=== PATIENT | female | born 1985 | race Two or more races ===

== ENCOUNTER → 2017-01-04 | Outpatient (CLI) | payer BC | END | disposition home or self-care (01) | LOC: LAB 15:18 | PROVIDERS: ATTEND Internal Medicine | DX: Z01.812 Encounter for preprocedural laboratory examination (principal) | CPT/HCPCS: 36415; 82565; 84520 ==

== ENCOUNTER 2017-01-26 09:36 | Inpatient (IN) | payer BC ==
[~2017-01-26] VITALS: Ht 162.6 cm; Wt 67.7 kg
[2017-01-26] MEDS ORDERED: PANTOPRAZOLE SODIUM 40 MG/10 ML VIAL IV ONE (10:45)
[2017-01-26 11:00] VITALS: BP 130/91
[2017-01-26] MEDS ORDERED: LEVOTHYROXINE SODIUM 25 MCG TAB PO ONE (11:15)
[2017-01-26] MEDS ORDERED: LEVOFLOXACIN 500MG 100 ML IV ONE (11:15)
[2017-01-26 11:17] LABS: Basophils # (auto) 0 uL; Basophils % (auto) 0.5 % (0.0-2.0); Eosinophils # (auto) 0.1 uL; Eosinophils % (auto) 1.7 % (0.0-7.0); Hematocrit 44.2 % (36.0-46.0); Hemoglobin 14.7 g/dL (12.2-16.2); Lymphocytes # (auto) 1.6 uL; Lymphocytes % (auto) 26.4 % (10.0-50.0); Mean Corpuscular Hemoglobin 30.2 pg (28.0-32.0); Mean Corpuscular Hgb Conc. 33.1 g/dL (32.0-36.0); Mean Corpuscular Volume 91.3 fL (80.0-100.0); Mean Platelet Volume 7.9 fL (7.4-10.4); Monocytes # (auto) 0.6 uL; Monocytes % (auto) 10.6 % (0.0-12.0); Neutrophils # (auto) 3.6 uL; Neutrophils % (auto) 60.8 % (37.0-80.0); Platelet Count (auto) 318 10^3/uL (140-450); Red Cell Distribution Width 13.3 % (11.6-16.0)
[2017-01-26 11:40] LABS: Albumin 3.6 g/dL (3.4-5.0); BUN/Creatinine Ratio 5.4; Bilirubin, Total 0.2 mg/dL (0.2-1.0); Calcium 8.8 mg/dL (8.5-10.1); Potassium 4.2 mmol/L (3.5-5.1); Total Protein 7.8 g/dL (6.4-8.2)
[2017-01-26 11:41] LABS: INR 1.02 (0.9-1.15); Partial Thromboplastin Time 25.4 sec (22.64-33.71); Prothrombin Time 10.5 sec (9.37-12.3)
[2017-01-26 12:06] VITALS: BP 126/83
[2017-01-26] MEDS ORDERED: ESCI10TA PO (12:13)
[2017-01-26] MEDS ORDERED: CIPR-217 PO (12:13)
[2017-01-26] MEDS ORDERED: ESCI5TAB PO (12:13)
[2017-01-26] MEDS ORDERED: MELA3TAB42 PO (12:17)
[2017-01-26] MEDS ORDERED: CRAN400T6 PO (12:17)
[2017-01-26] MEDS ORDERED: [UNRECOGNIZED DRUG - CODE] PO (12:17)
[2017-01-26] MEDS ORDERED: LEVO75TA6 PO (12:17)
[2017-01-26] MEDS: ONDANSETRON HCL 4 MG/2 ML VIAL IV PRN ×2 (13:35→19:56)
[2017-01-26] MEDS: SODIUM CHLORIDE 0.9% 1,000 ML IV SCH (13:36)
[2017-01-26] MEDS: MORPHINE SULF INJ 2 MG/ML SYRINGE 1ML IV PRN (13:36)
[2017-01-26 17:25] VITALS: BP 118/73
[2017-01-26 22:00] VITALS: BP 133/74
[2017-01-26] MEDS: HYDROcodone-ACET 5/325MG TAB PO PRN (23:05)
[2017-01-27] MEDS: SODIUM CHLORIDE 0.9% 1,000 ML IV SCH ×2 (04:44→13:25)
[2017-01-27 05:35] VITALS: BP 128/74
[2017-01-27] MEDS: LEVOTHYROXINE SODIUM 25 MCG TAB PO SCH (06:41)
[2017-01-27 08:00] VITALS: BP 115/71
[2017-01-27] MEDS ORDERED: LIDOCAINE VISCOUS 2% 15ML UD ONE (08:22)
[2017-01-27] MEDS ORDERED: SODIUM CHLORIDE LOCK 10 ML ONE (08:22)
[2017-01-27] MEDS ORDERED: diphenhdrAMINE HCL 50 MG/1 ML VL ONE (08:23)
[2017-01-27 09:02] VITALS: BP 115/71
[2017-01-27] MEDS ORDERED: PANTOPRAZOLE SODIUM 40 MG/10 ML VIAL IV SCH (10:00)
[2017-01-27] MEDS: CITALOPRAM HYDROBR 20 MG TAB PO SCH (10:00)
[2017-01-27] MEDS: LEVOFLOXACIN 500MG 100 ML IV SCH (10:04)
[2017-01-27] MEDS ORDERED: LORazepam 2MG/ML-1ML VIAL IV ONE (10:15)
[2017-01-27] MEDS: fentaNYL CITRATE 100 MCG/2 ML VL ONE ×3 (11:53→11:59)
[2017-01-27] MEDS: MIDAZOLAM HCL 5 MG/ML-1ML VIAL ONE ×3 (11:53→11:59)
[2017-01-27 12:04] VITALS: BP 126/86
[2017-01-27] MEDS: ONDANSETRON HCL 4 MG/2 ML VIAL IV PRN (17:27)
[2017-01-27 17:30] VITALS: BP 106/69
[2017-01-27 21:20] VITALS: BP 124/72
[2017-01-27] MEDS: HYDROcodone-ACET 5/325MG TAB PO PRN (23:53)
[2017-01-28] MEDS: SODIUM CHLORIDE 0.9% 1,000 ML IV SCH ×3 (02:45→20:03)
[2017-01-28 05:01] VITALS: BP 115/75
[2017-01-28] MEDS: LEVOTHYROXINE SODIUM 25 MCG TAB PO SCH (06:43)
[2017-01-28 08:00] VITALS: BP 135/84
[2017-01-28] MEDS: CITALOPRAM HYDROBR 20 MG TAB PO SCH (09:31)
[2017-01-28] MEDS: LEVOFLOXACIN 500MG 100 ML IV SCH (09:31)
[2017-01-28] MEDS: ONDANSETRON HCL 4 MG/2 ML VIAL IV PRN ×2 (09:31→22:36)
[2017-01-28] MEDS: MORPHINE SULF INJ 2 MG/ML SYRINGE 1ML IV PRN (09:35)
[2017-01-28 10:37] LABS: Urine Bilirubin Negative (Negative); Urine Color Yellow (Yellow); Urine Glucose Normal (Normal); Urine Mucus FEW (None Seen); Urine Nitrite Negative (Negative); Urine RBC 4 /hpf (0 - 4); Urine Squamous Epithelial Cell MOD /hpf (<5); Urine Urobilinogen Normal (Negative); Urine WBC Clumps PRESENT /hpf (None Seen); Urine pH 5.5 (5.0-8.0)
[2017-01-28 11:00] LABS: Urine Blood 1+ /uL (Negative); Urine Ketone 4+ (Negative)
[2017-01-28 11:50] VITALS: BP 121/74
[2017-01-28] MEDS ORDERED: MIDAZOLAM HCL 1MG/1ML-2 ML VIAL ONE (13:27)
[2017-01-28] MEDS ORDERED: fentaNYL CITRATE 100 MCG/2 ML VL ONE (13:27)
[2017-01-28] MEDS ORDERED: MEPERIDINE HCL (50 MG/ML) 1 ML VIAL ONE ×2 (13:27→14:35)
[2017-01-28] MEDS ORDERED: PROPOFOL 10 MG/ML 20 ML IV ONE (13:28)
[2017-01-28] MEDS ORDERED: NEOSTIGMINE 1 MG/ML INJ (10mg/10ML VIAL) ONE (13:28)
[2017-01-28] MEDS ORDERED: SODIUM CHLORIDE LOCK 20 ML ONE (13:28)
[2017-01-28] MEDS ORDERED: GLYCOPYRROLATE 0.2 MG/ML 1ML VIAL ONE (13:28)
[2017-01-28] MEDS ORDERED: ONDANSETRON HCL 4 MG/2 ML VIAL ONE (13:28)
[2017-01-28] MEDS ORDERED: ROCURONIUM 10MG/ML 10ML VIAL IV ONE (13:28)
[2017-01-28] MEDS ORDERED: BUPIVACAINE 0.25% INJ 50ML VIAL ONE (13:47)
[2017-01-28] MEDS ORDERED: ACETAMINOPHEN IV 100 ML IV ONE ×3 (14:44→15:00)
[2017-01-28] MEDS ORDERED: HYDROmorphone HCL 2 MG/ML VL IV PRN (15:00)
[2017-01-28] MEDS ORDERED: PROMETHAZINE HCL 25 MG/ML 1ML IM ONE (15:00)
[2017-01-28] MEDS ORDERED: KETOROLAC TROMETH 30 MG/ML 1ML VIAL IV ONE (15:00)
[2017-01-28 16:00] VITALS: BP 136/83
[2017-01-28] MEDS: HYDROmorphone HCL 2 MG/ML VL IV PRN ×2 (16:24→22:36)
[2017-01-28 21:02] VITALS: BP 123/67
[2017-01-29] VITALS (7 sets, daily range): BP systolic 114–131; BP diastolic 61–80
[2017-01-29] MEDS ORDERED: ONDANSETRON HCL 4 MG/2 ML VIAL IV PRN (02:15)
[2017-01-29] MEDS ORDERED: ONDANSETRON HCL 4 MG/2 ML VIAL ONE (02:20)
[2017-01-29] MEDS: HYDROmorphone HCL 2 MG/ML VL IV PRN ×3 (02:30→19:52)
[2017-01-29 05:16] LABS: Basophils # (auto) 0 uL; Basophils % (auto) 0.2 % (0.0-2.0); Eosinophils # (auto) 0 uL; Eosinophils % (auto) 0.4 % (0.0-7.0); Hematocrit 37.8 % (36.0-46.0); Hemoglobin 12.6 g/dL (12.2-16.2); Lymphocytes # (auto) 1.3 uL; Lymphocytes % (auto) 15.9 % (10.0-50.0); Mean Corpuscular Hemoglobin 30.2 pg (28.0-32.0); Mean Corpuscular Hgb Conc. 33.4 g/dL (32.0-36.0); Mean Corpuscular Volume 90.2 fL (80.0-100.0); Mean Platelet Volume 8.1 fL (7.4-10.4); Monocytes # (auto) 0.5 uL; Monocytes % (auto) 6.6 % (0.0-12.0); Neutrophils # (auto) 6.1 uL; Neutrophils % (auto) 76.9 % (37.0-80.0); Platelet Count (auto) 277 10^3/uL (140-450); Red Cell Distribution Width 13.2 % (11.6-16.0); White Blood Cell 7.9 10^3/uL (4.4-10.8)
[2017-01-29 05:36] LABS: Albumin 2.8 g/dL (3.4-5.0); Calcium 7.5 mg/dL (8.5-10.1); Potassium 4.1 mmol/L (3.5-5.1)
[2017-01-29 05:42] LABS: Bilirubin, Total 0.2 mg/dL (0.2-1.0); Total Protein 6.2 g/dL (6.4-8.2)
[2017-01-29] MEDS: LEVOTHYROXINE SODIUM 25 MCG TAB PO SCH (06:32)
[2017-01-29] MEDS: HYDROcodone-ACET 5/325MG TAB PO PRN (06:53)
[2017-01-29] MEDS: CITALOPRAM HYDROBR 20 MG TAB PO SCH (10:05)
[2017-01-29] MEDS: LEVOFLOXACIN 500MG 100 ML IV SCH (10:05)
[2017-01-29] MEDS: PROMETHAZINE HCL 25 MG/ML 1ML IV PRN ×2 (12:00→19:53)
[2017-01-29] MEDS: SODIUM CHLORIDE 0.9% 1,000 ML IV SCH (17:51)
[2017-01-30 05:27] LABS: Basophils # (auto) 0 uL; Basophils % (auto) 0.4 % (0.0-2.0); Eosinophils # (auto) 0 uL; Eosinophils % (auto) 0.6 % (0.0-7.0); Hematocrit 38.4 % (36.0-46.0); Hemoglobin 12.8 g/dL (12.2-16.2); Lymphocytes # (auto) 1.4 uL; Lymphocytes % (auto) 19.5 % (10.0-50.0); Mean Corpuscular Hemoglobin 29.8 pg (28.0-32.0); Mean Corpuscular Hgb Conc. 33.3 g/dL (32.0-36.0); Mean Corpuscular Volume 89.4 fL (80.0-100.0); Mean Platelet Volume 7.8 fL (7.4-10.4); Monocytes # (auto) 0.5 uL; Monocytes % (auto) 7.6 % (0.0-12.0); Neutrophils % (auto) 71.9 % (37.0-80.0); Platelet Count (auto) 272 10^3/uL (140-450); Red Cell Distribution Width 13.1 % (11.6-16.0)
[2017-01-30 05:30] VITALS: BP 130/80
[2017-01-30 05:32] LABS: INR 1.09 (0.9-1.15); Prothrombin Time 11.2 sec (9.37-12.3)
[2017-01-30 05:55] LABS: Albumin 2.9 g/dL (3.4-5.0); BUN/Creatinine Ratio 3.7; Bilirubin, Total 0.3 mg/dL (0.2-1.0); Calcium 7.6 mg/dL (8.5-10.1); Magnesium 1.8 mg/dL (1.6-2.6); Potassium 4.1 mmol/L (3.5-5.1); Total Protein 6.6 g/dL (6.4-8.2)
[2017-01-30] MEDS: LEVOTHYROXINE SODIUM 25 MCG TAB PO SCH (06:16)
[2017-01-30] MEDS: HYDROmorphone HCL 2 MG/ML VL IV PRN ×3 (06:17→20:21)
[2017-01-30] MEDS: PROMETHAZINE HCL 25 MG/ML 1ML IV PRN ×3 (06:17→20:21)
[2017-01-30] MEDS: SODIUM CHLORIDE 0.9% 1,000 ML IV SCH (06:18)
[2017-01-30 09:00] VITALS: BP 112/64
[2017-01-30] MEDS: LEVOFLOXACIN 500MG 100 ML IV SCH (10:09)
[2017-01-30] MEDS: CITALOPRAM HYDROBR 20 MG TAB PO SCH (10:10)
[2017-01-30 13:00] VITALS: BP 130/76
[2017-01-30 16:52] VITALS: BP 124/84
[2017-01-30 20:00] VITALS: BP 116/71
[2017-01-30 21:30] VITALS: BP 116/71
[2017-01-31] MEDS: PROMETHAZINE HCL 25 MG/ML 1ML IV PRN ×2 (01:12→06:54)
[2017-01-31] MEDS: HYDROmorphone HCL 2 MG/ML VL IV PRN ×2 (01:12→06:54)
[2017-01-31] MEDS: SODIUM CHLORIDE 0.9% 1,000 ML IV SCH ×2 (01:33→10:45)
[2017-01-31 05:00] VITALS: BP 105/68
[2017-01-31] MEDS: LEVOTHYROXINE SODIUM 25 MCG TAB PO SCH (06:54)
[2017-01-31 08:00] VITALS: BP 105/68
[2017-01-31 08:45] VITALS: BP 115/74
[2017-01-31] MEDS: CITALOPRAM HYDROBR 20 MG TAB PO SCH (09:58)
[2017-01-31] MEDS: LEVOFLOXACIN 500MG 100 ML IV SCH (09:58)
[2017-01-31] MEDS ORDERED: DOCUSATE SOD 100 MG CAP PO ONE (11:00)
[2017-01-31 11:53] VITALS: BP 115/74
[2017-01-31 12:07] VITALS: BP 122/69
== END 2017-01-31 13:30 | disposition home or self-care (01) | DRG 419 ==
LOC: EAST 09:36
PROVIDERS: ADMIT Internal Medicine; ATTEND Internal Medicine
PROC: 0DB68ZX Excision of Stomach, Via Natural or Artificial Opening Endoscopic, Diagnostic (ICD-10-PCS; principal; 2017-01-27 11:50)
PROC: 0FT44ZZ Resection of Gallbladder, Percutaneous Endoscopic Approach (ICD-10-PCS; 2017-01-28)
DX: K81.0 Acute cholecystitis (principal); E03.9 Hypothyroidism, unspecified; R00.0 Tachycardia, unspecified; K58.9 Irritable bowel syndrome, unspecified; Z88.0 Allergy status to penicillin
CPT/HCPCS: 36415; 43239; 74181; 78226; 80053; 80061; 81001; 83690; 83735; 84443; 84702; 85025; 85610; 85730; 87086; 93005; C9113; J0131; J1956; J2250; J2405; J2704; J3490

== ENCOUNTER → 2017-02-10 | Outpatient (CLI) | payer BC ==
[~2017-02-10] MED LIST: CIPR-217 PO; CRAN400T6 PO; ESCI10TA PO; ESCI5TAB PO; LEVO75TA6 PO; MELA3TAB42 PO; [UNRECOGNIZED DRUG - CODE] PO
[2017-02-10 14:01] LABS: Urine Bilirubin Negative (Negative); Urine Blood Negative /uL (Negative); Urine Color Yellow (Yellow); Urine Glucose Normal (Normal); Urine Ketone Negative (Negative); Urine Nitrite Negative (Negative); Urine RBC <1 /hpf (0 - 4); Urine Squamous Epithelial Cell FEW /hpf (<5); Urine Urobilinogen Normal (Negative); Urine pH 6.5 (5.0-8.0)
== END | disposition home or self-care (01) ==
LOC: LAB 11:47
PROVIDERS: ATTEND Internal Medicine
DX: N39.0 Urinary tract infection, site not specified (principal)
CPT/HCPCS: 81001

== ENCOUNTER → 2017-06-20 | Outpatient (CLI) | payer BC | END | disposition home or self-care (01) | LOC: LAB 14:11 | PROVIDERS: ATTEND Internal Medicine | DX: I10 Essential (primary) hypertension (principal) | CPT/HCPCS: 36415; 85652; 86038; 86141; 86431 ==

== ENCOUNTER → 2018-09-25 | Outpatient (CLI) | payer BC ==
[2018-09-25 13:07] LABS: Basophils # (auto) 0 uL; Basophils % (auto) 0.8 % (0.0-2.0); Eosinophils # (auto) 0.4 uL; Eosinophils % (auto) 6.7 % (0.0-7.0); Lymphocytes # (auto) 1.8 uL; Lymphocytes % (auto) 33.5 % (10.0-50.0); Mean Corpuscular Hemoglobin 30.5 pg (28.0-32.0); Mean Corpuscular Hgb Conc. 33.3 g/dL (32.0-36.0); Mean Corpuscular Volume 91.6 fL (80.0-100.0); Monocytes # (auto) 0.4 uL; Monocytes % (auto) 7.1 % (0.0-12.0); Neutrophils # (auto) 2.8 uL; Neutrophils % (auto) 51.9 % (37.0-80.0); Nucleated Red Blood Cells % 0.1 %; Platelet Count (auto) 278 10^3/uL (140-450); Red Blood Cells 4.59 10^6/uL (4.0-5.20); Red Cell Distribution Width 13.4 % (11.8-14.3); White Blood Cell 5.4 10^3/uL (4.4-10.8)
[2018-09-25 13:19] LABS: Potassium 4.7 mmol/L (3.5-5.1)
[2018-09-25 13:30] LABS: Albumin 3.7 g/dL (3.4-5.0); BUN/Creatinine Ratio 8.1; Bilirubin, Total 0.2 mg/dL (0.2-1.0); Calcium 8.3 mg/dL (8.5-10.1); Total Protein 7.7 g/dL (6.4-8.2)
[2018-09-25 13:46] LABS: Beta HCG, Quantitative < 1 mlU/mL (1-3)
== END | disposition home or self-care (01) ==
LOC: LAB 11:33
PROVIDERS: ATTEND Internal Medicine
DX: E03.9 Hypothyroidism, unspecified (principal)
CPT/HCPCS: 36415; 80053; 84443; 84702; 85025

== ENCOUNTER → 2019-03-16 | Outpatient (CLI) | payer BC ==
[2019-03-16 08:24] LABS: Basophils # (auto) 0 uL; Basophils % (auto) 0.4 % (0.0-2.0); Eosinophils # (auto) 0.4 uL; Eosinophils % (auto) 5.9 % (0.0-7.0); Hematocrit 43.7 % (36.0-46.0); Hemoglobin 14.5 g/dL (12.2-16.2); Lymphocytes # (auto) 1.8 uL; Lymphocytes % (auto) 29.8 % (10.0-50.0); Mean Corpuscular Hemoglobin 30.6 pg (28.0-32.0); Mean Corpuscular Hgb Conc. 33.3 g/dL (32.0-36.0); Monocytes # (auto) 0.3 uL; Monocytes % (auto) 5.5 % (0.0-12.0); Neutrophils # (auto) 3.5 uL; Neutrophils % (auto) 58.4 % (37.0-80.0); Nucleated Red Blood Cells % 0.1 %; Platelet Count (auto) 260 10^3/uL (140-450); Red Blood Cells 4.75 10^6/uL (4.0-5.20); Red Cell Distribution Width 13.7 % (11.8-14.3)
[2019-03-16 08:44] LABS: Urine Bacteria FEW /hpf (None Seen); Urine Blood Negative /uL (Negative); Urine Specific Gravity 1.014 (1.001-1.035); Urine WBC 1 /hpf (0 - 5)
[2019-03-16 09:06] LABS: Potassium 4.4 mmol/L (3.5-5.1)
[2019-03-16 09:11] LABS: Albumin 3.9 g/dL (3.4-5.0); BUN/Creatinine Ratio 16.2; Bilirubin, Total 0.3 mg/dL (0.2-1.0); Calcium 7.9 mg/dL (8.5-10.1); Total Protein 7.5 g/dL (6.4-8.2)
== END | disposition home or self-care (01) ==
LOC: LAB 07:43
PROVIDERS: ATTEND Internal Medicine
DX: E03.9 Hypothyroidism, unspecified (principal); M25.50 Pain in unspecified joint
CPT/HCPCS: 36415; 80053; 80061; 81001; 84439; 84443; 85025; 85652; 86038; 86200; 86431

== ENCOUNTER 2019-12-05 10:08 | Emergency (ER) | payer BC ==
[~2019-12-05] VITALS: Ht 162.6 cm; Wt 64.4 kg
[~2019-12-05 10:08] MED LIST changes: -CIPR-217 PO; +CIPR500T4 PO
[2019-12-05 10:16] VITALS: BP 138/77
[2019-12-05] MEDS ORDERED: IBUPROFEN 800 MG TAB PO ONE (11:15)
== END 2019-12-05 11:32 | disposition home or self-care (01) ==
LOC: ER 10:08
DX: S63.91XA Sprain of unspecified part of right wrist and hand, initial encounter (principal); Z88.0 Allergy status to penicillin; Z79.899 Other long term (current) drug therapy; W01.0XXA Fall on same level from slipping, tripping and stumbling without subsequent striking against object, initial encounter; Y93.02 Activity, running; Y92.009 Unspecified place in unspecified non-institutional (private) residence as the place of occurrence of the external cause; Y99.8 Other external cause status
CPT/HCPCS: 29125; 73130

== ENCOUNTER → 2020-09-18 | Outpatient (CLI) | payer BC ==
[2020-09-18 09:18] LABS: Basophils # (auto) 0 10 ^3/uL (0-0.2); Basophils % (auto) 0.6 % (0.0-2.0); Eosinophils # (auto) 0.2 10 ^3/uL (0-0.8); Eosinophils % (auto) 3.8 % (0.0-7.0); Hematocrit 41.2 % (36.0-46.0); Hemoglobin 13.5 g/dL (12.2-16.2); Lymphocytes # (auto) 1.8 10 ^3/uL (0.4-5.4); Mean Corpuscular Hemoglobin 29.9 pg (28.0-32.0); Mean Corpuscular Hgb Conc. 32.7 g/dL (32.0-36.0); Mean Corpuscular Volume 91.4 fL (80.0-100.0); Monocytes # (auto) 0.3 10 ^3/uL (0-1.3); Monocytes % (auto) 5.4 % (0.0-12.0); Neutrophils # (auto) 3.3 10 ^3/uL (1.6-8.6); Neutrophils % (auto) 58.2 % (37.0-80.0); Nucleated Red Blood Cells % 0.1 %; Platelet Count (auto) 301 10^3/uL (140-450); Red Cell Distribution Width 13.8 % (11.8-14.3); White Blood Cell 5.7 10^3/uL (4.4-10.8)
[2020-09-18 09:22] LABS: Urine Bacteria NONE SEEN /hpf (None Seen); Urine Blood Negative /uL (Negative); Urine Specific Gravity 1.012 (1.001-1.035); Urine WBC 2 /hpf (0 - 5)
[2020-09-18 09:45] LABS: Albumin 3.7 g/dL (3.4-5.0); Calcium 8.4 mg/dL (8.5-10.1); Potassium 4.2 mmol/L (3.5-5.1)
[2020-09-18 09:51] LABS: BUN/Creatinine Ratio 11.4; Bilirubin, Total 0.3 mg/dL (0.2-1.0); Total Protein 7.2 g/dL (6.4-8.2)
== END | disposition home or self-care (01) ==
LOC: LAB 08:51
PROVIDERS: ATTEND Internal Medicine
DX: J30.2 Other seasonal allergic rhinitis (principal); R53.83 Other fatigue; F32.9 Major depressive disorder, single episode, unspecified
CPT/HCPCS: 36415; 80053; 80061; 81001; 82785; 84439; 84443; 85025; 85652

== ENCOUNTER → 2020-10-20 | Outpatient (CLI) | payer OTHER | END | disposition home or self-care (01) | LOC: LAB 10:12 | PROVIDERS: ATTEND Nurse Practitioner Family | DX: U07.1 COVID-19 (principal) | CPT/HCPCS: C9803; U0003 ==

== ENCOUNTER → 2021-07-08 | Outpatient (CLI) | payer BC ==
[2021-07-08 07:37] LABS: Basophils # (auto) 0.1 10 ^3/uL (0-0.2); Basophils % (auto) 1.4 % (0.0-2.0); Eosinophils # (auto) 0.4 10 ^3/uL (0-0.8); Eosinophils % (auto) 5.8 % (0.0-7.0); Hematocrit 39.4 % (36.0-46.0); Hemoglobin 13.6 g/dL (12.2-16.2); Lymphocytes # (auto) 2.3 10 ^3/uL (0.4-5.4); Lymphocytes % (auto) 36.7 % (10.0-50.0); Mean Corpuscular Hemoglobin 31.2 pg (28.0-32.0); Mean Corpuscular Hgb Conc. 34.5 g/dL (32.0-36.0); Mean Corpuscular Volume 90.5 fL (80.0-100.0); Monocytes # (auto) 0.3 10 ^3/uL (0-1.3); Monocytes % (auto) 5.4 % (0.0-12.0); Neutrophils # (auto) 3.2 10 ^3/uL (1.6-8.6); Neutrophils % (auto) 50.7 % (37.0-80.0); Nucleated Red Blood Cells % 0.1 %; Red Blood Cells 4.36 10^6/uL (4.0-5.20); Red Cell Distribution Width 13.4 % (11.8-14.3); White Blood Cell 6.3 10^3/uL (4.4-10.8)
[2021-07-08 08:11] LABS: Albumin 3.3 g/dL (3.4-5.0); Calcium 8.2 mg/dL (8.5-10.1); Potassium 4.3 mmol/L (3.5-5.1)
[2021-07-08 08:17] LABS: BUN/Creatinine Ratio 16.7; Bilirubin, Total 0.4 mg/dL (0.2-1.0); Total Protein 7.5 g/dL (6.4-8.2)
== END | disposition home or self-care (01) ==
LOC: LAB 06:50
PROVIDERS: ATTEND Internal Medicine
DX: E03.9 Hypothyroidism, unspecified (principal); F41.9 Anxiety disorder, unspecified; F32.9 Major depressive disorder, single episode, unspecified; M12.9 Arthropathy, unspecified; M25.552 Pain in left hip
CPT/HCPCS: 36415; 80053; 80061; 84443; 85025; 86431

== ENCOUNTER → 2023-11-14 | Outpatient (CLI) | payer BC ==
[2023-11-14 08:27] LABS: Basophils # (auto) 0.1 10 ^3/uL (0-0.2); Basophils % (auto) 0.8 % (0.0-2.0); Eosinophils # (auto) 0.4 10 ^3/uL (0-0.8); Eosinophils % (auto) 5.7 % (0.0-7.0); Hematocrit 37.4 % (36.0-46.0); Hemoglobin 12.3 g/dL (12.2-16.2); Lymphocytes # (auto) 1.9 10 ^3/uL (0.4-5.4); Lymphocytes % (auto) 30.7 % (10.0-50.0); Mean Corpuscular Hemoglobin 29.2 pg (28.0-32.0); Mean Corpuscular Hgb Conc. 32.8 g/dL (32.0-36.0); Mean Corpuscular Volume 88.9 fL (80.0-100.0); Monocytes # (auto) 0.4 10 ^3/uL (0-1.3); Monocytes % (auto) 6.1 % (0.0-12.0); Neutrophils # (auto) 3.5 10 ^3/uL (1.6-8.6); Neutrophils % (auto) 56.7 % (37.0-80.0); Nucleated Red Blood Cells % 0.1 %; Red Blood Cells 4.21 10^6/uL (4.0-5.20); Red Cell Distribution Width 13.9 % (11.8-14.3); White Blood Cell 6.2 10^3/uL (4.4-10.8)
[2023-11-14 08:57] LABS: Alanine Aminotransferase 14 U/L (7-40); Albumin 4.4 g/dL (3.2-4.8); Alkaline Phosphatase 74 U/L (46-116); Anion Gap 5 (5-15); Aspartate Aminotransferase 16 U/L (13-40); Calcium 8.8 mg/dL (8.5-10.1); Carbon Dioxide 28 mmol/L (20-30); Chloride 104 mmol/L (98-107); Glucose 89 mg/dL (74-106); Potassium 4.5 mmol/L (3.5-5.1); Sodium 137 mmol/L (136-145)
[2023-11-14 08:58] LABS: Bilirubin, Total 0.3 mg/dL (0.2-1.0); Total Protein 6.9 g/dL (5.7-8.2)
[2023-11-14 09:03] LABS: BUN/Creatinine Ratio 6.5 (10.0-20.0); Blood Urea Nitrogen < 5 mg/dL (9-23)
[2023-11-14 09:08] LABS: Beta HCG, Quantitative 1.2 mIU/mL (1.5-4.2)
[2023-11-14 09:10] LABS: Thyroid Stimulating Hormone 4.69 uIU/mL (0.55-4.78)
[2023-11-14 10:38] LABS: Prolactin 8.03 ng/mL (2.8-29.2)
[2023-11-14 10:40] LABS: Free T4 (Free Thyroxine) 1.1 ng/dL (0.89-1.76)
== END | disposition home or self-care (01) ==
LOC: LAB 08:07
PROVIDERS: ATTEND Obstetrics & Gynecology
DX: N93.9 Abnormal uterine and vaginal bleeding, unspecified (principal)
CPT/HCPCS: 36415; 80053; 81025; 84146; 84439; 84443; 84702; 85025

== ENCOUNTER 2025-07-17 07:25 | Outpatient (CLI) | payer BC ==
[2025-07-17 08:16] LABS: Alanine Aminotransferase 10 U/L (7-40); Albumin 4.6 g/dL (3.2-4.8); Alkaline Phosphatase 61 U/L (46-116); Anion Gap 9 (5-15); BUN/Creatinine Ratio 6.4 (10.0-20.0); Bilirubin, Total 0.3 mg/dL (0.2-1.0); Carbon Dioxide 27 mmol/L (20-31); Chloride 104 mmol/L (98-107); Cholesterol 134 mg/dL (< 200); Glucose 90 mg/dL (74-106); Potassium 4.1 mmol/L (3.5-5.1); Sodium 140 mmol/L (136-145); Total Protein 7.0 g/dL (5.7-8.2); Triglycerides 53 mg/dL (< 150)
[2025-07-17 08:18] LABS: Blood Urea Nitrogen 5 mg/dL (9-23); Calcium 8.6 mg/dL (8.7-10.4); HDL Cholesterol 68 mg/dL (40-59)
[2025-07-17 08:21] LABS: Hematocrit 36.1 % (36.0-46.0); Hemoglobin 12.4 g/dL (12.2-16.2); Mean Corpuscular Hemoglobin 30.2 pg (28.0-32.0); Mean Corpuscular Volume 88.0 fL (80.0-100.0); Nucleated Red Blood Cells % 0.1 %
== END 2025-07-17 17:00 | disposition home or self-care (01) ==
LOC: LAB 07:25
PROVIDERS: ATTEND Internal Medicine
DX: E03.9 Hypothyroidism, unspecified (principal); F32.9 Major depressive disorder, single episode, unspecified; M12.9 Arthropathy, unspecified; Z68.24 Body mass index [BMI] 24.0-24.9, adult
CPT/HCPCS: 36415; 80053; 80061; 83036; 84443; 85025